=== PATIENT | male | born 1990 ===

== ENCOUNTER 2018-05-01 08:06 | Inpatient (IN) | payer MEDICAID ==
[2018-05-01 09:26] LABS: BASO # 0.1 K/uL (0.0-0.2); BASO % 0.7 % (0.0-2.0); EOS # 0.1 K/uL (0.0-0.7); EOS % 1.3 % (0.0-4.0); HEMOGLOBIN 14.6 g/dL (12.0-18.0); LYMPH # 2.3 K/uL (1.0-4.3); LYMPH % 32.1 % (20.0-40.0); MEAN CELL VOLUME 84.9 fL (80.0-94.0); MEAN CORPUSCULAR HEMOGLOBIN 27.8 pg (27.0-31.0); MEAN CORPUSCULAR HGB CONC 32.7 g/dL (33.0-37.0); MEAN PLATELET VOLUME 8.8 fL (7.2-11.7); MONO # 0.8 K/uL (0.0-0.8); MONO % 11.8 % (0.0-10.0); NEUT # 3.8 K/uL (1.8-7.0); NEUT % 54.1 % (50.0-75.0); NRBC % 0.1 % (0.0-2.0); RBC 5.26 Mil/uL (4.40-5.90); RED CELL DISTRIBUTION WIDTH 13.3 % (11.5-14.5); WHITE BLOOD COUNT 7.1 K/uL (4.8-10.8)
[2018-05-01 09:30] LABS: SQUAMOUS EPITHIAL < 1 /hpf (0-5); URINE BILIRUBIN NEGATIVE (NEGATIVE); URINE BLOOD NEGATIVE (NEGATIVE); URINE CLARITY Clear (Clear); URINE COLOR Yellow (YELLOW); URINE GLUCOSE (UA) NORMAL (Normal); URINE LEUKOCYTE ESTERASE NEG Leu/uL (Negative); URINE PROTEIN NEGATIVE (NEGATIVE)
[2018-05-01 09:56] LABS: ALB/GLOB RATIO 1.6 (1.0-2.1); ALBUMIN 4.6 g/dL (3.5-5.0); ALT/SGPT 18 U/L (21-72); AST/SGOT 31 U/L (17-59); BLOOD UREA NITROGEN 11 mg/dL (9-20); CALCIUM 9.1 mg/dl (8.6-10.4); GFR NON-AFRICAN AMERICAN > 60
[2018-05-01 10:04] LABS: BARBITURATES, UR NEGATIVE (NEGATIVE); BENZODIAZEPINES, UR NEGATIVE (NEGATIVE); PHENCYCLIDINE, UR NEGATIVE (NEGATIVE)
[2018-05-01 10:05] LABS: OPIATES, UR POSITIVE (NEGATIVE)
--- NOTE | 2018-05-01 10:33 | C.PDOC ---
History Of Present Illness 27 year old male presents to the ED for heroin detox. The patient reports last heroin use was last night. In the ED the patient is calm and cooperative. Denies fever, chills, and any other associated symptoms. Offers no medical complaints at this time. Time Seen by Provider: 05/01/18 08:50 Chief Complaint (Nursing): Substance Abuse History Per: Patient History/Exam Limitations: no limitations Recent travel outside of the [place]: No Past Medical History Reviewed: Historical Data, Nursing Documentation, Vital Signs Vital Signs: Last Vital Signs Temp 97 F L 05/01/18 08:09 Pulse 84 05/01/18 08:09 Resp 18 05/01/18 08:09 BP 118/79 05/01/18 08:09 Pulse Ox 99 05/01/18 08:09 Family History: States: Unknown Family Hx - Social History Hx Alcohol Use: No Hx Substance Use: Yes (Heroin. ) - Immunization History Hx Tetanus Toxoid Vaccination: No Hx Influenza Vaccination: No Hx Pneumococcal Vaccination: No Review Of Systems Except As Marked, All Systems Reviewed And Found Negative. Constitutional: Positive for: Other (heroin detox. ). Negative for: Fever, Chills Physical Exam - Physical Exam Appears: No Acute Distress Skin: Warm, Dry Head: Atraumatic, Normacephalic Eye(s): bilateral: Normal Inspection, EOMI Oral Mucosa: Moist Neck: Normal ROM, Supple Chest: Symmetrical, No Deformity Cardiovascular: Rhythm Regular, No Friction Rub, No Murmur Respiratory: Normal Breath Sounds, No Rales, No Rhonchi, No Wheezing Gastrointestinal/Abdominal: Normal Exam, Soft, No Tenderness Back: Normal Inspection, No CVA Tenderness, No Vertebral Tenderness Extremity: Normal ROM (x4), No Tenderness, No Swelling Neurological/Psych: Oriented x3, Normal Speech Gait: Steady ED Course And Treatment - Laboratory Results Result Diagrams: 05/01/18 09:20 05/01/18 09:20 Lab Results: Total Bilirubin 0.3 mg/dL (0.2-1.3) 05/01/18 09:20 AST 31 U/L (17-59) 05/01/18 09:20 ALT 18 U/L (21-72) L 05/01/18 09:20 Alkaline Phosphatase 75 U/L (38-126) 05/01/18 09:20 Total Protein 7.5 g/dL (6.3-8.3) 05/01/18 09:20 Albumin 4.6 g/dL (3.5-5.0) 05/01/18 09:20 Globulin 2.9 gm/dL (2.2-3.9) 05/01/18 09:20 Albumin/Globulin Ratio 1.6 (1.0-2.1) 05/01/18 09:20 Urine Color Yellow (YELLOW) 05/01/18 09:20 Urine Clarity Clear (Clear) 05/01/18 09:20 Urine pH 5.0 (5.0-8.0) 05/01/18 09:20 Ur Specific [place] 1.027 (1.003-1.030) 05/01/18 09:20 Urine Protein Negative mg/dL (NEGATIVE) 05/01/18 09:20 Urine Glucose (UA) Normal mg/dL (Normal) 05/01/18 09:20 Urine Ketones Trace mg/dL (NEGATIVE) 05/01/18 09:20 Urine Blood Negative (NEGATIVE) 05/01/18 09:20 Urine Nitrate Negative (NEGATIVE) 05/01/18 09:20 Urine Bilirubin Negative (NEGATIVE) 05/01/18 09:20 Urine Urobilinogen 2.0 mg/dL (0.2-1.0) 05/01/18 09:20 Ur Leukocyte Esterase Neg [place]/uL (Negative) 05/01/18 09:20 Urine WBC (Auto) 1 /hpf (0-5) 05/01/18 09:20 Urine RBC (Auto) < 1 /hpf (0-3) 05/01/18 09:20 Ur Squamous Epith Cells < 1 /hpf (0-5) 05/01/18 09:20 O2 Sat by Pulse Oximetry: 99 (RA) Pulse Ox Interpretation: Normal Medical Decision Making Medical Decision Making: Initial plan: -Blood sent. -Urinalysis Progress/Update: Patient was evaluated by crisis. The patient is medically cleared for psych/detox admission. Disposition - Disposition Disposition: HOSPITALIZED Disposition Time: 11:24 Condition: STABLE Forms: [facility] ([place]an) - POA Present On Arrival: None - Clinical Impression Clinical Impression: Opiate dependence - PA / SALES [employer]ENT INSURANCE / Resident Statement MD/DO has reviewed & agrees with the documentation as recorded. - Scribe Statement The provider has reviewed the documentation as recorded by the Scribe (Rachael Alcaraz) All medical record entries made by the Scribe were at my direction and pers onally dictated by me. I have reviewed the chart and agree that the record accurately reflects my personal performance of the history, physical exam, medical decision making, and the department course for this patient. I have also personally directed, reviewed, and agree with the discharge instructions and disposition.
--- NOTE | 2018-05-01 12:14 | PCM.PSYCH ---
Initial Psychiatric Evaluation - Initial Psychiatric Evaluation Type of Admission: Voluntary Legal Status: Capacity Chief Complaint (in patient's own words): "I need detox" History of Present Illness and Precipitating Events: The patient was seen, chart reviewed and case discussed. 7-year-old male, single with no child, lives with his girlfriend. He does other jobs. The patient is here for heroin detox; he is using 8-10 bags intranasally for the past 3 years. This is his first treatment. He also uses cocaine sometimes and smokes marijuana once or twice a week. He denies alcohol and other drugs but smokes half pack per day cigarettes. He also smokes Mj regularly He feels depressed and anxious but denies SI. No sarah or psychosis Past psychiatric: Denies Family psychiatric: Denies Medical history: He broke his feet recently. Past Psychiatric History - Past Psychiatric History Previous Treatment History: None Pertinent Medical Hx (Current Medical&Sleep Prob, Allergies): Allergies Allergy/AdvReac Type Severity Reaction Status Date / Time No Known Allergies Allergy Verified 05/01/18 08:12 No Known Home Med 05/01/18 Review of Systems - Neurological Neurological: UNREMARKABLE - Psychiatric Psychiatric: Abnormal Sleep Pattern, Anhedonia, Anxiety, Depression (mild), Difficulty Concentrating, Suicidal Ideation. absent: Hallucinations, Homicidal Ideation Mental Status Examination - Personal Presentation Personal Presentation: Looks stated age - Affect Affect: Constricted - Motor Activity Motor Activity: Calm - Reliability in Providing Information Reliability in Providing Information: Good - Speech Speech: Organized - Mood Mood: Depressed, Anxious - Formal Thought Process Formal Thought Process: No Impairment - Cognitive Functions Orientation: Person, Place, Situation, Time Sensorium: Alert Attention/Concentration: Attentive Estimate of Intelligence: Average Judgement: Intact, as evidence by: Insight regarding need for hospitalization Memory: Remote intact, as evidenced by: Abilit to recall sig. life events - Risk Risk: Withdrawal, Diminished functioning - Strength & Assets Inventory Strength & Assets Inventory: Cooperative - Limitations Limitations: Other DSM 5 DX - DSM 5 DSM 5 Diagnosis: Opioid use disorder, severe Opioid withdrawal Cocaine use disorder, moderate Cannabis use disorder, severe Depressive disorder, unspecified Tobacco use disorder, moderate - Recommended/Plan of Treatment Treatment Recommendations and Plan of Treatment: Taper with methadone Gabapentin for augmentation if needed As needed medications All risks, benefits and alternatives of the meds discussed, and the pt agreed and understood. Attend groups and activities Supportive therapy and psychoeducation [place] for abstinence CBT for relapse prevention Encourage MAT Refer to rehab or IOP, and self-help groups Teach healthy lifestyle methods, i.e. diet, exercise, meditation Smoking cessation with [place] Nicotine patch if needed 34 min Projected ELOS: 4-5 days Prognosis: good w treatment - Smoking Cessation Smoking Cessation Initiated: Yes
--- NOTE | 2018-05-01 13:58 | PCM.BM ---
<Keena Giang - Last Filed: 05/01/18 13:55> Treatment Plan Problems - Problems identified on initial assessmt Denial Date Initiated: 05/01/18 Time Initiated: 13:55 Assessment reference: NA Status: Active Hopelessness Date Initiated: 05/01/18 Time Initiated: 13:55 Status: Active Low Motivation to Change Date Initiated: 05/01/18 Time Initiated: 13:56 Assessment reference: NA Status: Active Treatment assets and liabiliti Patient Assests: cooperative, ADL independent, good support system Patient Liabilities: substance abuse (Heroin) - Milieu Protocol Maintain good personal hygiene: daily Encourage regular showers, daily Remind patient to perform daily oral care, daily Assist patient to perform ADL's Conduct patient checks and document Observation sheet: Q15 minutes Maintain personal safety: every shift Educate patient to report safety concerns to staff, every shift Monitor environment for contraband/sharps Medication safety: Monitor for expected outcome, potential side effects: every shift, Assess barriers to learning: every shift, Assess readiness for medication education: every shift <Renetta Coulter - Last Filed: 05/04/18 13:11> Family Contact Family contact name: Family contacted how many times per week?: 2 - Goals for Treatment Patient goals for treatment: Complete detox and transition to an IOP.
--- NOTE | 2018-05-03 01:16 | PCM.PYCHPN ---
Psychiatric Progress Note - Psychiatric Progress Note Patient Chief Complaint: "I need detox" Medication Change: Yes Medical Record Reviewed: Yes Mental Status Examination - Cognitive Function Orientation: Person, Place, Situation, Time - Mood Mood: Depressed, Anxious - Affect Affect: Constricted - Formal Thought Process Formal Thought Process: No Impairment Goal/Treatment Plan - Goal/Treatment Plan Progress Toward Problem(s) and Goals/Treatment Plan: Taper with methadone Gabapentin for augmentation if needed As needed medications All risks, benefits and alternatives of the meds discussed, and the pt agreed and understood. Attend groups and activities Supportive therapy and psychoeducation [place] for abstinence CBT for relapse prevention Encourage MAT Refer to rehab or IOP, and self-help groups Teach healthy lifestyle methods, i.e. diet, exercise, meditation Smoking cessation with [place] Nicotine patch if needed 34 min
[2018-05-05 06:54] VITALS: RESP 18
--- NOTE | 2018-05-05 08:53 | PCM.PYCHDC ---
Mental Status Examination - Mental Status Examination Orientation: Person Discharge Summary - Discharge Note Consultations:: List each consultation separately and include: 1. Reason for request. 2. Findings. 3. Follow-up Summary of Hospital Course include:: 1. Description of specific treatment plan utilized for patients during their course of treatmen. 2. Summarize the time- course for resolution of acute symptoms and/or regressed behaviors. 3. Describe issues identified and worked on during hospitalization. 4. Describe medication utilized. 5. Describe medical problems identified and treated. 6. Reassessment of suicide risk Summary of Hospital Course: The patient was seen, chart reviewed and case discussed. 7-year-old male, single with no child, lives with his girlfriend. He do es other jobs. The patient is here for heroin detox; he is using 8-10 bags intranasally for the past 3 years. This is his first treatment. He also uses cocaine sometimes and smokes marijuana once or twice a week. He denies alcohol and other drugs but smokes half pack per day cigarettes. He also smokes Mj regularly He feels depressed and anxious but denies SI. No sarah or psychosis Past psychiatric: Denies Family psychiatric: Denies Medical history: He broke his feet recently. Pt refused after care. Risks discussed, numbers given. - Final Diagnosis (DSM 5) Condition upon Discharge: STABLE Disposition: HOME/ ROUTINE Follow-up Treatment Plan: Taper with methadone Gabapentin for augmentation if needed As needed medications All risks, benefits and alternatives of the meds discussed, and the pt agreed and understood. Attend groups and activities Supportive therapy and psychoeducation [place] for abstinence CBT for relapse prevention Encourage MAT Refer to rehab or IOP, and self-help groups Teach healthy lifestyle methods, i.e. diet, exercise, meditation Smoking cessation with [place] Nicotine patch if needed 34 min Prescriptions/Medication Reconciliation: traZODone [Desyrel] 50 mg PO HS PRN #30 tab PRN Reason: Insomnia
[2018-05-05 10:01] VITALS: BP 134/83; PULSE 66; TEMP 97.6; O2SAT 98
== END 2018-05-05 09:15 | disposition home or self-care (01) | DRG 773 ==
LOC: C.ER 08:06 → C.7D 11:29
PROVIDERS: ADMIT Psychiatry & Neurology Psychiatry; ATTEND Psychiatry & Neurology Psychiatry
PROC: GZ56ZZZ Individual Psychotherapy, Supportive (ICD-10-PCS; principal; 2018-05-01)
DX: F11.23 Opioid dependence with withdrawal (principal); F32.9 Major depressive disorder, single episode, unspecified; F17.210 Nicotine dependence, cigarettes, uncomplicated; F14.10 Cocaine abuse, uncomplicated; F12.10 Cannabis abuse, uncomplicated